=== PATIENT | male | born 1970 | race Caucasian/White ===

== ENCOUNTER 2019-08-13 13:33 | Emergency (ER) | payer BC, SELFPAY ==
--- NOTE | ~2019-08-13 | CT_ITS ---
EXAMINATION: CT facial bones w con DATE: 08/13/2019 16:24 INDICATION: Left-sided facial swelling. TECHNIQUE: Computed tomography (CT) of the facial bones and maxillofacial region was performed with 1 00 mL Omnipaque-350 intravenous contrast. Coronal reconstructions were obtained. Automated exposure c ontrol and iterative reconstruction technique were employed. The dose-length product was 468.51 mGy-c m. COMPARISON: None. FINDINGS: Facial soft tissues tissue swelling with subcutaneous edema which is most prominent in the left infra mandibular region. The left parotid gland appears slightly larger than the left with subtly increased stranding within the left parotid best appreciated on the coronal images equivocal for mild parotidi tis. No abscess. Bones are unremarkable with no fracture or erosions. Paranasal sinuses are clear. Or bits are normal. Asymmetric mild relative enlargement of a few likely reactive left-sided level 2 jug ular chain lymph nodes relative to the right sided lymph nodes which remain within normal limits. Par anasal sinuses, mastoid air cells and middle ear cavities are clear. IMPRESSION: 1. Soft tissue swelling and subcutaneous edema most prominent along the left inframandibular region w hich could be due to nonspecific synovitis or potentially reactive related to possible left parotidit is. 2. Likely reactive mild high left jugular chain lymphadenopathy. Reviewed, dictated and finalized at location A. IMPRESSION: 1. Soft tissue swelling and subcutaneous edema most prominent along the left in framandibular region which could be due to nonspecific synovitis or potentially reactive related to possible left parotiditis. 2. Likely reactive mild high left jugular chain lymphadenopathy.
[2019-08-13 13:36] VITALS: BP 149/87; PULSE 81; RESP 20; TEMP 36.2; O2SAT 100
[2019-08-13 14:17] LABS: Basophils Absolute Auto 0.1 K/mm3 (0.0-0.1); Basophils Percent Auto 1.1 % (0.2-1.2); Eosinophils Absolute Auto 0.2 K/mm3 (0-0.3); Eosinophils Percent Auto 2.6 % (0-4.4); Hematocrit 45.9 % (42.0-52.0); Hemoglobin 15.7 g/dL (14.0-18.0); Immature Granulocyte Absolute 0.01 K/mm3 (0.00-0.031); Immature Granulocyte Percent A 0.2 % (0-0.5); Lymphocytes Absolute Auto 1.25 K/mm3 (0.9-3.2); Mean Corpuscular HGB Conc 34.2 g/dl (32-36); Mean Corpuscular Hemoglobin 30.6 pg (26-34); Mean Corpuscular Volume 89.5 fl (80-100); Mean Platelet Volume 9.4 fl (7.4-10.4); Monocytes Absolute Auto 0.5 K/mm3 (0.1-0.6); Monocytes Percent Auto 8.3 % (2.6-8.5); Neutrophils Absolute Auto 4.2 K/mm3 (1.3-6.7); Neutrophils Percent Auto 67.8 % (45.5-73.1); Platelet Count Result 144 k/mm3 (150-375); Red Blood Count 5.13 M/mm3 (4.6-6.20); Red Cell Distribution Width 12.8 % (11.5-14.5); White Blood Count 6.2 K/mm3 (4.5-10.0)
[2019-08-13 14:32] LABS: Blood Urea Nitrogen 15 mg/dL (9-20); CRP 1.1 mg/dL (<1.0); Calcium 9.3 mg/dL (8.4-10.2); Carbon Dioxide 24 mmol/L (22-30); Chloride 102 mmol/L (98-107); Estimated CRCL calculation 146 ml/min; Estimated Glomerular Filt Rate > 60; Glucose 293 mg/dL (75-110); Potassium 4.5 mmol/L (3.4-5.0); Sodium 136 mmol/L (137-145)
[2019-08-13 14:45] LABS: Erythrocyte Sedimentation Rate 19 mm/hr (0-20)
--- NOTE | 2019-08-13 15:38 | ED.GENADULT ---
HPI - General Adult General Chief complaint: Unspecified Stated complaint: swelling to left face Time Seen by Provider: 08/13/19 15:23 Source: patient Mode of arrival: ambulatory Limitations: no limitations History of Present Illness HPI narrative: This is a 48-year-old male that presents emergency department for left-sided facial swelling that started this morning. No other associated symptoms. Denies fever, dentalgia, sore throat, dysphagia or dyspnea. Related Data Home Medications Medication Instructions Recorded Confirmed amlodipine 10 mg tablet 10 mg PO DAILY 01/23/19 aspirin 81 mg tablet,delayed 81 mg PO DAILY 01/23/19 release esomeprazole magnesium 40 mg 40 mg PO DAILY 01/23/19 capsule,delayed release fexofenadine 180 mg tablet 180 mg PO DAILY 01/23/19 Allergies Allergy/AdvReac Type Severity Reaction Status Date / Time cefuroxime Allergy Mild Unknown Verified 08/13/19 13:38 Penicillins Allergy Unknown Unknown Verified 08/13/19 13:38 Review of Systems Review of Systems: Narrative: CONSTITUTIONAL: Denies fever ENT: Denies sore throat RESPIRATORY: Denies dyspnea. All systems reviewed & are unremarkable except as noted in HPI and below PMFSH Past Medical History Medical History (Updated 08/13/19 @ 17:29 by Monserrat Fuchs PA-C) Anxiety Asthma Diverticulosis Dyslipidemia GERD (gastroesophageal reflux disease) HTN (hypertension) Iron deficiency anemia Type 2 diabetes mellitus without complications Family History Family History (Updated 09/20/15 @ 23:21 by DOCTOR UNKNOWN) Mother Patient's mother is in good health Sibling Patient's brother is in good health Social History Social History (Updated 01/23/19 @ 09:01 by Monique Prado [facility]) Smoking status: Former smoker Smoking end date: 02/22/93 Alcohol intake: current Drinks per week: 15 Substance use: never Gender identity (if verbalized by the patient): Male Exam Narrative: Exam Narrative: GENERAL: Well-appearing, obese, and in no acute distress. HEAD: Normocephalic, atraumatic. EYES: EOMI. ENT: Nares clear, no rhinorrhea or epistaxis. Mucous membranes moist. Oropharynx without tonsillar hypertrophy exudate or other lesions. Bilateral TMs pearly motley non-bulging NECK: Supple. Left sided facial swelling of the parotid gland. No erythema or warmth CHEST: Clear to auscultation. No respiratory distress. No wheezes rales or rhonchi HEART: Regular rate and rhythm. No murmur heard. Normal peripheral pulses. EXTREMITIES: Normal range of motion. No edema. SKIN: Warm, dry, no rash. NEURO: No focal deficits. Alert and oriented x3. PSYCH: Normal mood and affect Course Vital Signs Vital signs: Vital Signs Temperature 97.2 F L 08/13/19 13:36 Pulse Rate 81 08/13/19 13:36 Respiratory Rate 20 08/13/19 13:36 Blood Pressure 149/87 H 08/13/19 13:36 Pulse Oximetry 100 08/13/19 13:36 Temperature 97.2 F L 08/13/19 13:36 Pulse Rate 78 08/13/19 15:42 Respiratory Rate 16 08/13/19 15:42 Blood Pressure 128/83 08/13/19 15:42 Pulse Oximetry 98 08/13/19 15:42 Medical Decision Making MDM Narrative Medical decision making narrative: Patient presents the emergency department for left-sided facial swelling that he noticed this morning. Patient is afebrile and nontoxic-appearing. CBC is without leukocytosis. Metabolic panel with elevation of blood glucose, otherwise no acute findings. Inflammatory markers are not elevated. CT scan of the facial bones shows soft tissue swelling and subcutaneous edema most prominent along the left infra mandibular region, potentially related to parotitis. Patient will be started on oral antibiotics for possible bacterial parotitis. Patient is to follow-up with primary care doctor. He was given warnings to return to the ER Vital Signs Vital Signs: Vital Signs Temperature 97.2 F L 08/13/19 13:36 Pulse Rate 81 08/13/19 13:36 Respiratory Rate 20 08/13/19 13:36 B
[2019-08-13 15:42] VITALS: BP 128/83; PULSE 78; RESP 16; O2SAT 98
== END 2019-08-13 17:50 | disposition home or self-care (01) ==
PROVIDERS: Physician Assistant; Emergency Provider Emergency Medicine; PCP Family Medicine
DX: K11.20 Sialoadenitis, unspecified (principal); F41.9 Anxiety disorder, unspecified; J45.909 Unspecified asthma, uncomplicated; E78.5 Hyperlipidemia, unspecified; K21.9 Gastro-esophageal reflux disease without esophagitis; I10 Essential (primary) hypertension; E11.9 Type 2 diabetes mellitus without complications; Z79.82 Long term (current) use of aspirin; Z87.891 Personal history of nicotine dependence; Z86.2 Personal history of diseases of the blood and blood-forming organs and certain disorders involving the immune mechanism
CPT/HCPCS: 36415; 70487; 80048; 85025; 85652; 86140; 99284; Q9967

== ENCOUNTER 2020-02-18 21:31 | Emergency (ER) | payer BC, SELFPAY ==
[2020-02-18] VITALS (11 sets, daily range): BP systolic 167–197; BP diastolic 96–108; PULSE 82–89; RESP 13–20; TEMP 35.7; O2SAT 97–100
--- NOTE | ~2020-02-18 | CT_ITS ---
EXAMINATION: CT abdomen pelvis w con DATE: 02/18/2020 23:33 INDICATION: Epigastric abdominal pain, elevated liver enzymes TECHNIQUE: Computed tomography (CT) of the abdomen and pelvis was performed with 100 cc Omnipaque 350 intravenous contrast. Automated exposure control and iterative reconstruction technique were employe d. Exam dose: 1273.72 mGy-cm total exam DLP. COMPARISON: 11/21/2013 CT abdomen pelvis FINDINGS: The lung bases are clear of infiltrate or consolidation. Normal heart size. No pericardial or pleural effusion. There is diffuse hepatic steatosis. No hepatic space-occupying mass lesion or intrahepatic or extra h epatic bile duct or pancreatic duct dilatation. No hepatic or pancreatic space-occupying mass lesion. The gallbladder is present. No gallbladder wall thickening or pericholecystic fluid or stranding is evident. Splenic size is at upper limits of normal, vertical dimension approximately 13.6 cm. Normal morphology of the adrenal glands. 8 mm upper pole left renal cyst. The kidneys are otherwise unremarkable. No ureteral calculus or hydr oureteronephrosis. The urinary bladder is relatively evacuated, unremarkable. There is atherosclerotic calcification of the abdominal aorta. No aneurysm. No intraperitoneal or ret roperitoneal or pelvic mass lesion or adenopathy or ascites. No CT evidence of appendicitis. There is diverticulosis of right and left colon; no CT evidence of di verticulitis. No bowel obstruction, bowel wall thickening, pneumatosis or intraperitoneal free air. Very small fat-containing umbilical hernia. Diffuse idiopathic skeletal hyperostosis of the lower thoracic and upper lumbar spine. Moderate degen erative disease of the lumbar spine. Prominent degenerative change at the lumbar apophyseal joints. No suspicious osteolytic or osteoblastic lesions are noted. IMPRESSION: Hepatic steatosis and borderline splenomegaly Diverticulosis of left and right colon; no CT evidence of diverticulitis Reviewed, dictated and finalized at [facility]. Reviewed, dictated and finalized at location A. K RENTAL CLERK
--- NOTE | ~2020-02-18 | XR_ITS ---
EXAMINATION: XR chest 2V DATE: 02/18/2020 22:08 INDICATION: Constant nonbridging chest pain/pressure TECHNIQUE: PA and lateral views of the chest were obtained. COMPARISON: Chest CT dated 04/22/2017 FINDINGS: The lungs are clear with no focal airspace opacities, pulmonary edema, pleural effusion or pneumothor ax. The cardiomediastinal silhouette is normal. There are bridging osteophytes at multiple levels in the spine, consistent with diffuse idiopathic skeletal hyperostosis (DISH). Chronic anterior wedging at L1. IMPRESSION: 1. No acute cardiopulmonary disease. Reviewed, dictated and finalized at location A. L BRAIDER
--- NOTE | 2020-02-18 21:44 | ECG_ITS ---
Measurements Intervals [place] Rate: 84 P: 55 NH: 147 QRS: -11 QRSD: 106 T: 48 QT: 390 QTc: 462 Interpretive Statements SINUS RHYTHM BASELINE ARTIFACT- I, II, III, AVR, AVL NORMAL ECG Electronically Signed On 02-19-2020 7:16:23 BABY FORMULA WORKER by Mahesh Slade D.O.
[2020-02-18] MEDS: ASPIRIN 81 MG CHEWABLE TABLET 324 MG PO (21:56)
--- NOTE | 2020-02-18 21:57 | PC.NURSE ---
Patient being taken to xray.
[2020-02-18] MEDS: BELLADONNA ALK/PHENOB ELIX 10 ML, MAG HYDROX/ALUMINUM HYD/SIMETH 30 ML, LIDOCAINE HCL 2... PO (22:07)
[2020-02-18 22:20] LABS: Basophils Absolute Auto 0.1 K/mm3 (0.0-0.1); Eosinophils Absolute Auto 0.1 K/mm3 (0-0.3); Eosinophils Percent Auto 2.7 % (0-4.4); Hematocrit 45.2 % (42.0-52.0); Hemoglobin 15.6 g/dL (14.0-18.0); Immature Granulocyte Absolute 0.01 K/mm3 (0.00-0.031); Immature Granulocyte Percent A 0.2 % (0-0.5); Lymphocytes Absolute Auto 1.58 K/mm3 (0.9-3.2); Lymphocytes Percent Auto 30.9 % (18.3-44.2); Mean Corpuscular HGB Conc 34.5 g/dl (32-36); Mean Corpuscular Hemoglobin 31.5 pg (26-34); Mean Corpuscular Volume 91.3 fl (80-100); Mean Platelet Volume 9.8 fl (7.4-10.4); Monocytes Absolute Auto 0.5 K/mm3 (0.1-0.6); Monocytes Percent Auto 9.8 % (2.6-8.5); Neutrophils Absolute Auto 2.8 K/mm3 (1.3-6.7); Neutrophils Percent Auto 55.4 % (45.5-73.1); Platelet Count Result 145 k/mm3 (150-375); Red Blood Count 4.95 M/mm3 (4.6-6.20); Red Cell Distribution Width 12.3 % (11.5-14.5); White Blood Count 5.1 K/mm3 (4.5-10.0)
[2020-02-18 22:29] LABS: Prothrombin Time 13.6 Seconds (11.1-14.7)
[2020-02-18 22:30] LABS: Partial Thromboplastin Time 28.4 SECONDS (22.3-36.8)
--- NOTE | 2020-02-18 22:41 | ED.GENADULT ---
HPI - General Adult General Chief complaint: Chest Pain Stated complaint: chest pain Time Seen by Provider: 02/18/20 21:46 History of Present Illness HPI narrative: Patient is a 49-year-old gentleman who presents emerge department with chief complaint of epigastric discomfort and chest discomfort. Patient reports this evening he started having discomfort in the epigastric region rate reports that it radiates up into his chest states that it feels as though there is a pressure-like sensation. The patient denies fever denies cough denies diaphoresis denies radiation to the arm or into the neck. The patient reports that the primary focus of the discomfort is in the epigastric region. He does report that he drinks alcohol with approximately 2 drinks per day. The patient also reports he has history of hypertension and has not taken his evening dose of his blood pressure medicine. Patient reports that he has had a stress test several years ago. Related Data Home Medications Medication Instructions Recorded Confirmed aspirin 81 mg tablet,delayed 81 mg PO DAILY 01/23/19 12/07/19 release esomeprazole magnesium 40 mg 40 mg PO DAILY 01/23/19 12/07/19 capsule,delayed release fexofenadine 180 mg tablet 180 mg PO DAILY 01/23/19 12/07/19 Allergies Allergy/AdvReac Type Severity Reaction Status Date / Time cefuroxime Allergy Mild Unknown Verified 02/18/20 21:42 Penicillins Allergy Unknown Unknown Verified 02/18/20 21:42 Review of Systems Review of Systems: Narrative: A 10 system review of systems was completed on the patient and is negative except for what is stated in the HPI. Nursing and ancillary documentation was reviewed. [facility] Past Medical History Medical History Anxiety Asthma Diverticulosis Dyslipidemia GERD (gastroesophageal reflux disease) HTN (hypertension) Iron deficiency anemia Type 2 diabetes mellitus without complications Family History Family History Mother Patient's mother is in good health Sibling Patient's brother is in good health Social History Social History Smoking status: Former smoker Smoking end date: 02/22/93 Alcohol intake: current Drinks per week: 15 Substance use: never Gender identity (if verbalized by the patient): Male Exam Narrative: Exam Narrative: GENERAL: Well-appearing, well-nourished, and in no acute distress. HEAD: Normocephalic, atraumatic. EYES: PERRLA and EOMI. ENT: Nares clear, no rhinorrhea or epistaxis. Mucous membranes moist. NECK: Supple. CHEST: Clear to auscultation. No respiratory distress. HEART: Regular rate and rhythm. No murmur heard. Normal peripheral pulses. ABDOMEN: Soft, nontender, nondistended, normal active bowel sounds. EXTREMITIES: Normal range of motion. No edema. SKIN: Warm, dry, no rash. NEURO: No focal deficits. Alert and oriented x3. PSYCH: Normal mood and affect. Course Course Emergency Course: EKG shows sinus rhythm rate of [address] elevation or ST depression Patient had a slight elevation in his liver transaminases a CT scan of the abdomen pelvis was obtained which showed no evidence of acute intra-abdominal pathology. Initial troponin was negative and repeat troponin was negative. Vital Signs Vital signs: Vital Signs Temperature 35.7 C L 02/18/20 21:37 Pulse Rate 89 02/18/20 21:37 Respiratory Rate 18 02/18/20 21:37 Blood Pressure 197/108 H 02/18/20 21:37 Pulse Oximetry 100 02/18/20 21:37 Temperature 35.7 C L 02/18/20 21:37 Pulse Rate 82 02/19/20 01:15 Respiratory Rate 13 02/19/20 01:15 Blood Pressure 155/90 H 02/19/20 00:01 Pulse Oximetry 97 02/19/20 01:15 Medical Decision Making Vital Signs Vital Signs: Vital Signs Temperature 35.7 C L 02/18/20 21:37 Pulse Rate 89 02/18/20 21:37 Re
[2020-02-18 22:43] LABS: Troponin I < 0.012 ng/mL (0.000-0.034)
[2020-02-18 22:56] LABS: Alanine Aminotransferase 68 U/L (4-50); Albumin Level 4.4 g/dL (3.5-5.1); Alkaline Phosphatase 148 U/L (38-126); Aspartate Amino Transferase 65 U/L (17-59); Bilirubin,Total 0.5 mg/dL (0.2-1.3); Lipase 146 U/L (23-300)
[2020-02-18 23:10] LABS: Anion Gap 14 mmol/L (8-16); Blood Urea Nitrogen 14 mg/dL (9-20); Calcium 9.4 mg/dL (8.4-10.2); Carbon Dioxide 25 mmol/L (22-30); Chloride 94 mmol/L (98-107); Estimated CRCL calculation 125 ml/min; Estimated Glomerular Filt Rate > 60; Glucose 379 mg/dL (75-110); Potassium 3.9 mmol/L (3.4-5.0); Sodium 133 mmol/L (137-145)
[2020-02-19] VITALS (10 sets, daily range): BP systolic 147–155; BP diastolic 90–101; PULSE 80–86; RESP 13–19; O2SAT 96–100
[2020-02-19 01:40] LABS: Troponin I < 0.012 ng/mL (0.000-0.034)
== END 2020-02-19 02:25 | disposition home or self-care (01) ==
PROVIDERS: Emergency Provider Emergency Medicine; PCP Family Medicine
DX: R10.13 Epigastric pain (principal); R07.89 Other chest pain; E11.65 Type 2 diabetes mellitus with hyperglycemia; Z79.82 Long term (current) use of aspirin; J45.909 Unspecified asthma, uncomplicated; E78.5 Hyperlipidemia, unspecified; K21.9 Gastro-esophageal reflux disease without esophagitis; I10 Essential (primary) hypertension; Z86.2 Personal history of diseases of the blood and blood-forming organs and certain disorders involving the immune mechanism; Z87.891 Personal history of nicotine dependence
CPT/HCPCS: 36415; 71046; 74177; 80048; 80076; 83690; 84484; 85025; 85610; 85730; 93005; 99284; A9270; Q9967

== ENCOUNTER 2020-04-05 14:09 | Outpatient (CLI) | payer BC, SELFPAY ==
--- NOTE | ~2020-04-05 | XR_ITS ---
EXAMINATION: XR chest 2V DATE: 04/05/2020 14:40 INDICATION: Shortness of breath TECHNIQUE: PA and lateral views of the chest are obtained. COMPARISON: 02/18/2020 FINDINGS: The lungs are free of acute opacities. There is no pleural effusion or pneumothorax. The ca rdiomediastinal silhouette is normal. There are bridging osteophytes at multiple levels in the spine, consistent with diffuse idiopathic skeletal hyperostosis (DISH). IMPRESSION: 1. No acute cardiopulmonary abnormality. Reviewed, dictated and finalized at location A. CTION MEDICINE PHYSICIAN
[2020-04-05 14:47] LABS: Basophils Absolute Auto 0.1 K/mm3 (0.0-0.1); Basophils Percent Auto 0.9 % (0.2-1.2); Eosinophils Absolute Auto 0.2 K/mm3 (0-0.3); Hematocrit 44.2 % (42.0-52.0); Hemoglobin 15.4 g/dL (14.0-18.0); Immature Granulocyte Absolute 0.02 K/mm3 (0.00-0.031); Immature Granulocyte Percent A 0.4 % (0-0.5); Immature Platelet Fraction Pct 3.6 % (0.9-11.2); Lymphocytes Absolute Auto 1.31 K/mm3 (0.9-3.2); Lymphocytes Percent Auto 23.4 % (18.3-44.2); Mean Corpuscular HGB Conc 34.8 g/dl (32-36); Mean Corpuscular Volume 88.9 fl (80-100); Monocytes Absolute Auto 0.7 K/mm3 (0.1-0.6); Monocytes Percent Auto 12.5 % (2.6-8.5); Neutrophils Absolute Auto 3.3 K/mm3 (1.3-6.7); Neutrophils Percent Auto 59.8 % (45.5-73.1); Platelet Count Result 155 k/mm3 (150-375); Red Blood Count 4.97 M/mm3 (4.6-6.20); Red Cell Distribution Width 11.9 % (11.5-14.5); White Blood Count 5.6 K/mm3 (4.5-10.0)
[2020-04-05 14:58] LABS: Alanine Aminotransferase 65 U/L (4-50); Albumin Level 4.1 g/dL (3.5-5.1); Alkaline Phosphatase 98 U/L (38-126); Anion Gap 6 mmol/L (8-16); Aspartate Amino Transferase 69 U/L (17-59); Bilirubin,Total 0.5 mg/dL (0.2-1.3); Blood Urea Nitrogen 14 mg/dL (9-20); Calcium 9.3 mg/dL (8.4-10.2); Carbon Dioxide 33 mmol/L (22-30); Chloride 98 mmol/L (98-107); Estimated Glomerular Filt Rate > 60; Glucose 332 mg/dL (75-110); Potassium 4.5 mmol/L (3.4-5.0); Sodium 137 mmol/L (137-145); Uric Acid 4.3 mg/dL (3.5-8.5)
[2020-04-05 15:06] LABS: NT Pro B Type Natriuretic Pept 130 PG/ML (5-100)
[2020-04-05 15:49] LABS: Iron 101 ug/dL (49-181)
[2020-04-05 15:59] LABS: Percent Iron Saturation 27 % (20-50)
[2020-04-05 16:05] LABS: Folic Acid > 20.0 ng/mL (2.76->20)
[2020-04-05 16:20] LABS: Hepatitis B Surface Antigen Negative (Negative)
[2020-04-05 16:26] LABS: HAV RESULT Negative (Negative); Hepatitis B Core IgM Result Negative (Negative)
[2020-04-05 16:38] LABS: Hepatitis C Virus Antibody Negative (Negative)
== END 2020-04-05 14:10 | disposition home or self-care (01) ==
LOC: ANHLAB 14:11
PROVIDERS: PCP Family Medicine; Visit Provider Physician Assistant
DX: R06.02 Shortness of breath (principal); I50.9 Heart failure, unspecified; M10.9 Gout, unspecified; K21.9 Gastro-esophageal reflux disease without esophagitis; E11.9 Type 2 diabetes mellitus without complications; I10 Essential (primary) hypertension; J45.909 Unspecified asthma, uncomplicated; F41.9 Anxiety disorder, unspecified; E78.5 Hyperlipidemia, unspecified; D50.9 Iron deficiency anemia, unspecified; M79.2 Neuralgia and neuritis, unspecified
CPT/HCPCS: 36415; 71046; 80053; 80074; 82607; 82728; 82746; 83036; 83540; 83550; 83880; 84443; 84550; 85025; 85055; 86038

== ENCOUNTER 2020-05-02 13:30 | Outpatient (CLI) | payer BC, SELFPAY | END 2020-05-02 13:31 | disposition home or self-care (01) | LOC: ANHCOVIDVC 13:30 | PROVIDERS: PCP Family Medicine | DX: Z23 Encounter for immunization (principal) | CPT/HCPCS: 0001A; 91300 ==

== ENCOUNTER 2020-05-23 13:25 | Outpatient (CLI) | payer BC, SELFPAY | END 2020-05-23 13:26 | disposition home or self-care (01) | LOC: ANHCOVIDVC 13:25 | PROVIDERS: PCP Family Medicine | DX: Z23 Encounter for immunization (principal) | CPT/HCPCS: 0002A; 91300 ==

== ENCOUNTER 2021-02-21 13:41 | Outpatient (CLI) | payer BC, SELFPAY ==
--- NOTE | ~2021-02-21 | XR_ITS ---
EXAMINATION: XR shoulder LT min 2V EXAM DATE: 02/21/2021 14:13 INDICATION: Left shoulder pain. TECHNIQUE: The following left shoulder projections obtained: frontal projection with internal rotatio n, frontal projection with external rotation, Grashey, and axillary (4+ views). Correlation is made t o right shoulder same date. FINDINGS: There is mild left glenohumeral joint, moderate to severe acromioclavicular joint primary o steoarthritis. Tiny calcification along the inferior glenoid rim. There are no acute fractures or di slocations identified. There is no subcutaneous gas. The soft tissue is unremarkable. There are n o radiopaque foreign bodies. IMPRESSION: Left shoulder moderate to severe acromioclavicular, mild glenohumeral osteoarthritis. Reviewed, dictated and finalized at location A. L INSTALLER IMPRESSION: Left shoulder moderate to severe acromioclavicular, mild glenohumer al osteoarthritis.
--- NOTE | ~2021-02-21 | XR_ITS ---
EXAMINATION: XR shoulder RT min 2V EXAM DATE: 02/21/2021 14:13 INDICATION: Right shoulder pain. TECHNIQUE: The following right shoulder projections obtained: frontal projection with internal rotati on, frontal projection with external rotation, Grashey, and axillary (4+ views). Comparison is made t o prior examination from 11/19/2017. FINDINGS: No evidence of right shoulder rotator cuff calcific tendinosis. There is mild glenohumer al joint, moderate acromioclavicular joint primary osteoarthritis. Difficult appreciate any signific ant interval change compared to 2018. There are no acute fractures or dislocations identified. There is no subcutaneous gas. The soft tissue is unremarkable. There are no radiopaque foreign bodies. IMPRESSION: Moderate right acromioclavicular, mild glenohumeral osteoarthritis. Reviewed, dictated and finalized at location A. ACE FILLER
--- NOTE | ~2021-02-21 | XR_ITS ---
EXAMINATION: XR lumbar spine 2-3V EXAM DATE: 02/21/2021 14:13 INDICATION: Chronic low back pain. TECHNIQUE: Lumber spine frontal, lateral, lateral L5-S1 projections for interpretation. There is no prior study for comparison. FINDINGS: There are bridging thoracolumbar endplate osteophytes and also at L3-4. Mild to moderate d isc disease T11-L2, mild at the mid lumbar levels and mild to moderate at L5-S1. There is moderate lane mbar facet arthropathy. Sacrum, sacroiliac joints, sacral arcuate lines are intact. Paraspinal soft t issue is unremarkable. The vertebral bodies are aligned in the AP dimension. IMPRESSION: 1. Mild to moderate lumbar disc disease. 2. Moderate facet arthropathy. Reviewed, dictated and finalized at location A. ICIDE APPLICATOR
--- NOTE | ~2021-02-21 | XR_ITS ---
EXAMINATION: XR thoracic spine 2V EXAM DATE: 02/21/2021 14:13 INDICATION: Chronic upper back pain. TECHNIQUE: Frontal and lateral projections of the thoracic spine as well as lateral swimmers projecti on of the upper thoracic spine for interpretation. There is no prior study for comparison. FINDINGS: Patient has diffuse idiopathic skeletal hyperostosis, flowing osteophytes along the entire thoracic spine. Mild diffuse thoracic disc disease. There are no acute fractures identified. The nereida tebral body heights are maintained. Paraspinal soft tissue is unremarkable. IMPRESSION: 1. Thoracic diffuse idiopathic skeletal hyperostosis. 2. Mild disc disease. Reviewed, dictated and finalized at location A. GUN OPERATOR
--- NOTE | ~2021-02-21 | XR_ITS ---
EXAMINATION: XR knee LT 3V EXAM DATE: 02/21/2021 14:13 INDICATION: Left knee pain. TECHNIQUE: Three projections of the left knee. There is no prior study for comparison. FINDINGS: No evidence osteochondral defect or joint body in the left knee joint. There is mild langley llofemoral compartment primary osteoarthritis. Mild patellar lateral subluxation. There is suprapate llar and infrapatellar enthesopathy. No joint effusion. There are no acute fractures identified. No r adiopaque foreign bodies identified. IMPRESSION: Mild left patellar degenerative changes. Reviewed, dictated and finalized at location A. L OPPORTUNITY REPRESENTATIVE
== END 2021-02-21 13:42 | disposition home or self-care (01) ==
LOC: ANHIMG 13:45
PROVIDERS: PCP Family Medicine; Visit Provider Physician Assistant
DX: M25.519 Pain in unspecified shoulder (principal); M25.569 Pain in unspecified knee; M54.50 Low back pain, unspecified; M54.6 Pain in thoracic spine; M19.012 Primary osteoarthritis, left shoulder; M19.011 Primary osteoarthritis, right shoulder; M48.14 Ankylosing hyperostosis [Forestier], thoracic region; M51.9 Unspecified thoracic, thoracolumbar and lumbosacral intervertebral disc disorder; M12.88 Other specific arthropathies, not elsewhere classified, other specified site
CPT/HCPCS: 72070; 72100; 73030; 73562

== ENCOUNTER 2021-05-02 08:00 | Outpatient (RCR) | payer BC, SELFPAY ==
[2021-02-28 12:35] VITALS: BP_SYST 155
--- NOTE | 2021-02-28 14:09 | PTOPEVAL ---
PHYSICAL THERAPY EVALUATION AND PLAN OF CARE 02-28-21 Thank you for referring Francisco Javier Sherman to [facility].? He is scheduled to be seen for therapy? 2 x/week for 3 weeks. Please review, sign, date and return this plan of care TIFFANY. I agree with and certify that the following plan of care is medically necessary. Referring Physician Date Attending Provider: Krystyna Charles PA-C *PT Outpatient Evaluation Document 02/28/21 12:35 OSEAS (Rec: 02/28/21 13:43 OSEAS [id number]) Past Medical History Source of Past Medical History Recalled from Previous Visit, Confirmed with Patient/Family Neurological History Hx Neurological Disorders No Significant History Cardiovascular History Hx Hypercholesterolemia Yes: meds Hx Hypertension Yes: meds Respiratory History Hx Asthma Yes Gastrointestinal History Hx Diverticulitis Yes Hx Gastroesophageal Reflux Disease Yes Genitourinary History Hx Genitourinary Disorders No Significant History Musculoskeletal History Hx Back Pain Yes: chronic back pain- radicular into B legs;thoracic buldge disc Hx Gout Yes: R big toe-? due to med/ no longer have issues Hx Orthopedic Surgery Yes: R quad tendon repair/ pulled off bone Hx Other Musculoskeletal Disorders Yes: R & L shoulder, neck pain - radicular into R and L arms; Hematological History Hx Hematological Disorders No Significant History Endocrine History Hx Diabetes Yes: meds HEENT History Hx HEENT Disorders No Significant History Evaluation Information Problem Diagnosis pain R shoulder,pain L shoulder,pain L knee,pain thoracic spine,LBP Onset November 2020 Subjective Information chronic issues with both Query Text:As Reported By Patient/ shoulder pain; Family in November working on home and fell through ceiling and as falling down, caught self with UE on roof joist, then hung by arms, then dropped himself down to the floor; shoulder pain has been about the same/ not any better since injury; discussed multiple diagnosis' with pt and need to pick only one to start treatment with: he stated R shoulder is giving him the most pain;
--- NOTE | 2021-03-17 15:30 | PCPTNOTE ---
Patient called & cancelled scheduled appointment this date due to work.
--- NOTE | 2021-03-21 08:52 | PTOPEVAL ---
PHYSICAL THERAPY RE-EVALUATION 03-21-21 Refer to the clinical summary below for his status today, compared to the initial evaluation for his R shoulder. The goals were partially achieved. He continues to have pain in his shoulder and reports he has an ortho referral, but the appointment has not yet been scheduled. PLAN: HOLD PT for his shoulder and he is to continue with his home exercises. At next appointment, will initiate the order for back pain, evaluate his back pain and begin treatment for it. Thank you for referring Francisco Javier Sherman to [facility].? Please review, sign, date and return this reevaluation report TIFFANY. I agree with and certify that the following plan of care is medically necessary. Referring Physician Date Attending Provider: Krystyna Charles PA-C Document 03/21/21 08:00 OSEAS (Rec: 03/21/21 08:52 OSEAS [id number]) Assessment Status Re-evaluation Subjective Information Francisco Javier reports: doing exercises Query Text:As Reported By Patient/ , they help some, but pain Family still there; have referral to ortho dr- appt not set yet; sleeping is little better, can lie on R side for little while; still pain with reaching out to the side; Pain Assessment Timing of Pain Assessment Timing of Pain Assessment Assessment Pain Scale Pain Scale Used Numeric (1 - 10) Self Report Pain Assessment Right Shoulder(s) Reported Pain Level 1 Radicular Pain Location no pain in elbow; pain over upper deltoid Pain Frequency Chronic Other Pain Description dull achey all time; sharp pain and jab when move wrong or lift; Lowest Pain Intensity 1 Greatest Pain Intensity 8 Pain Aggravating Factors Exercise/Activity Other Pain Aggravating Factors lifting out to the side; Pain Score Pain Score 1: Self Report Additional Pain Score Comments when moving arm, can reposition and ease the pain; with sleeping, awaken 1-2x/ night due to pain; can lie on R side about 1 hour before have to move; Quick DASH score with self assessment 48% limitation in activity reports kinesiotape helped a little--but came off quickly; applied leukotape to R shoulder strip over deltoid- issued pt name of tape and education on application;
--- NOTE | 2021-04-01 16:15 | PTOPEVAL ---
PHYSICAL THERAPY EVALUATION 04-01-21 Thank you for referring Francisco Javier Sherman to [facility] for the diagnosis of thoracic pain and low back pain. He is scheduled to be seen for therapy? 2 x/week for 4 weeks. Please review, sign, date and return this plan of care TIFFANY. I agree with and certify that the following plan of care is medically necessary. Referring Physician Date Attending Provider: Krystyna Charles PA-C *PT Outpatient Evaluation Past Medical History Source of Past Medical History Recalled from Previous Visit, Confirmed with Patient/Family Neurological History Hx Neurological Disorders No Significant History Cardiovascular History Hx Hypercholesterolemia Yes: meds Hx Hypertension Yes: meds Respiratory History Hx Asthma Yes Gastrointestinal History Hx Diverticulitis Yes Hx Gastroesophageal Reflux Disease Yes Genitourinary History Hx Genitourinary Disorders No Significant History Musculoskeletal History Hx Back Pain Yes: chronic back pain- radicular into B legs;thoracic buldge disc Hx Gout Yes: R big toe-? due to med/ no longer have issues Hx Orthopedic Surgery Yes: R quad tendon repair/ pulled off bone Hx Other Musculoskeletal Disorders Yes: R & L shoulder, neck pain - radicular into R and L arms; Hematological History Hx Hematological Disorders No Significant History Endocrine History Hx Diabetes Yes: meds HEENT History Hx HEENT Disorders No Significant History Evaluation Information Problem Diagnosis low back pain, thoracic pain Onset Jan 2021 Subjective Information chronic issues with thoracic Query Text:As Reported By Patient/ and lumbar/back pain; have had Family PT in the past for his back- manual therapy/cracking back, deep massage, heat/stim helped and exercises; last time had PT has been few years ago; had MRI 25 yr ago- said thoracic disc protruding--saw neurosurgeon, non surgical at that time; have not had mechanical traction or dry needling treatments; Diagnostic Tests X-Rays For This Problem Yes: per pt- arthritis MRI For This Problem Yes: 25 yr ago Prior Level of Function Activity Level (Last 3 Months) Occupation project hire- [employer] and
--- NOTE | 2021-04-30 14:04 | PCPTNOTE ---
pt called and canceled today's reeval;
--- NOTE | 2021-05-02 08:56 | PTOPEVAL ---
PHYSICAL THERAPY DISCHARGE 05-02-21 Refer to the clinical summary below, for his status today, compared to the back evaluation. The goals were partially achieved. He will be discharged from PT at this time. Thank you for referring Francisco Javier Sherman to [facility].? Please review, sign, date and return this Discharge report TIFFANY. I agree with and certify that the following plan of care is medically necessary. Referring Physician Date Attending Provider: Krystyna Charles PA-C Document 05/02/21 08:00 OSEAS (Rec: 05/02/21 08:56 OSEAS [id number]) Subjective Information Francisco Javier reports: exercises, dry Query Text:As Reported By Patient/ needling and deep massage Family helps the back pain and tightness; muscles are not as tight, but spine and bones still tight; plans to keep up with the exercises; Pain Assessment Timing of Pain Assessment Timing of Pain Assessment Assessment Pain Scale Pain Scale Used Numeric (1 - 10) Self Report Pain Assessment Bilateral Back Reported Pain Level 1 Pain Description Dull,Tightness Pain Frequency Chronic,Continuous Other Pain Description R and L low back, into R and L leg to feet, sharp 1x/day with in bed,sit Lowest Pain Intensity 1 Greatest Pain Intensity 7 Pain Aggravating Factors Exercise/Activity,Sitting Other Pain Aggravating Factors sit tolerance 1-1&1/2 hr, Pain Score Pain Score 1: Self Report Additional Pain Score Comments Oswestry self assessment functional score of 14% limitation had R shoulder injection- decrease pain and can lie on shoulder for sleeping; back does not wake him up from sleeping; discussed inversion table--he has not tried one Interventions Used Interventions Used By Clinicians Education,Exercise Pain Relief Interventions Used By Inactivity/Rest,Medication, Patient Position Change Other Alleviating Interventions stretching back, over the counter meds PRN, deep massage Gross Lower Extremity Range of Motion ant hip /quad length with Comments prone knee flexion B 120' hamstring length with supine SLR B 65' standing trunk- flexion fingers to mid hinton; extension WNL; rotation R/L
== END 2021-05-02 16:28 | disposition home or self-care (01) ==
LOC: ANHPT 08:00
PROVIDERS: PCP Family Medicine; Visit Provider Physician Assistant
DX: M25.511 Pain in right shoulder (principal); M25.512 Pain in left shoulder; M25.562 Pain in left knee; M54.6 Pain in thoracic spine; M54.50 Low back pain, unspecified; G89.29 Other chronic pain
CPT/HCPCS: 20560; 97012; 97035; 97110; 97140; 97161

== ENCOUNTER → 2021-06-16 10:45 | Outpatient (CLI) | payer BC, SELFPAY ==
--- NOTE | ~2021-06-16 | MR_ITS ---
EXAMINATION: MR shoulder RT wo con DATE: 06/16/2021 11:15 INDICATION: Right shoulder pain TECHNIQUE: Magnetic resonance imaging (MRI) of the right shoulder was performed without intravenous c ontrast. Sequences included axial PD-weighted FS FSE, coronal oblique PD-weighted FS FSE, coronal obl ique T2-weighted FS FSE, sagittal PD-weighted FS FSE, and sagittal T1-weighted SE. COMPARISON: None. FINDINGS: Coracoacromial arch: The acromion undersurface is curved in morphology (type II). The coracoacromial ligament is normal. S evere acromioclavicular osteoarthritis. Rotator cuff: Moderate supraspinatus and mild infraspinatus tendinopathy. There is a small articular sided tear ext ending 10 mm AP along the superior facet footplate of the supraspinatus tendon which involves approxi mately one half of the tendon thickness throughout the majority of its length. There is a tiny full-t hickness component measuring 2 mm AP at the posterior margin of the tear. The subscapularis and teres minor tendons are normal. Normal rotator cuff muscle bulk and signal. Biceps tendon, glenoid labrum and glenohumeral cartilage: Long head of the biceps tendon is normal. There is a small tear at the base of the 4:00-5: Position o f the anteroinferior glenoid labrum. Glenohumeral cartilage is normal. Fluid: Physiologic amount of fluid in the glenohumeral joint and biceps tendon sheath. No loose osteochondr al bodies. Small amount of fluid in the subacromial/subdeltoid bursa consistent with mild bursitis. Bones: Normal marrow signal with no edema, fracture or abnormal marrow replacing process. IMPRESSION: 1. Mild supraspinatus and infraspinatus tendinopathy with small primarily articular sided tear of the supraspinatus tendon with tiny full-thickness component. 2. Small tear at the anteroinferior glenoid labrum. 3. Severe acromioclavicular osteoarthritis. 4. Mild subacromial/subdeltoid bursitis. Reviewed, dictated and finalized at location B. IMPRESSION: 1. Mild supraspinatus and infraspinatus tendinopathy with small primarily artic ular sided tear of the supraspinatus tendon with tiny full-thickness component. 2. Small tear at the anteroinferior glenoid labrum. 3. Severe acromioclavicular osteoarthritis. 4. Mild subacromial/subdeltoid bursitis.
== END ==
PROVIDERS: PCP Family Medicine; Visit Provider Orthopaedic Surgery
DX: M19.011 Primary osteoarthritis, right shoulder (principal); M75.51 Bursitis of right shoulder
CPT/HCPCS: 73221

== ENCOUNTER 2024-08-28 16:18 | Outpatient (CLI) | payer BC, SELFPAY ==
--- NOTE | ~2024-08-28 | XR_ITS ---
EXAM: XR shoulder RT min 2V DATE: 08/28/2024 16:47 HISTORY: S49.91XA - Unspecified injury of right shoulder and upper... . COMPARISON: 02/21/2021. FINDINGS: Normal mineralization. No fracture or dislocation. No lytic or blastic lesion. Moderate AC joint and mild glenohumeral joint degenerative change. Calcified right lung granuloma. No erosion or periosteal change. Soft tissues within normal limits. IMPRESSION: Moderate AC joint and mild humeral joint osteoarthritis. No acute osseous finding in the right shoulder. Reviewed, dictated and finalized at location K. IMPRESSION: Moderate AC joint and mild humeral joint osteoarthritis. No acute o sseous finding in the right shoulder.
== END 2024-08-28 16:19 | disposition home or self-care (01) ==
LOC: MICIMG 16:20
PROVIDERS: PCP Family Medicine; Visit Provider Physician Assistant Medical
DX: M19.011 Primary osteoarthritis, right shoulder (principal); S49.91XA Unspecified injury of right shoulder and upper arm, initial encounter; X58.XXXA Exposure to other specified factors, initial encounter
CPT/HCPCS: 73030

== ENCOUNTER 2024-12-20 09:55 | Outpatient (CLI) | payer BC, SELFPAY ==
--- NOTE | ~2024-12-20 | MR_ITS ---
EXAMINATION: MR shoulder RT wo con DATE: 12/20/2024 10:27 INDICATION: Complete rotator cuff tear TECHNIQUE: Magnetic resonance imaging (MRI) of the right shoulder was performed without intravenous contrast. Sequences included axial PD-weighted FS FSE, coronal oblique PD-weighted FS FSE, coronal oblique T2-weighted FS FSE, sagittal PD-weighted FS FSE, and sagittal T1-weighted SE. COMPARISON: Radiographs dated 08/28/2024 and MRI dated 06/16/2021 FINDINGS: Coracoacromial arch: The acromion undersurface is curved in morphology (type II). The coracoacromial ligament is normal. Severe acromioclavicular osteoarthritis predominantly cephalad directed osteophytes and small amount of heterotopic ossicles along the cephalad joint capsule. Rotator cuff: Mild supraspinatus and infraspinatus tendinopathy. There is attenuation of the distal 2 cm of the supraspinatus and anterior infraspinatus tendon secondary to partial thickness articular sided tear which extends 2 cm AP along the superior facet and anterior middle facet footplates of the tendon. This has progressed since the prior study location was restricted to the 1 cm of the tendon anterior to a small full-thickness component to the tear which currently measures 3 mm AP along the posterior superior facet footplate of the supraspinatus tendon. The teres minor tendon is normal. Mild subscapularis tendinopathy without tear. Normal rotator cuff muscle bulk and signal. Biceps tendon, glenoid labrum and glenohumeral cartilage: Mild tendinopathy of the long head biceps tendon with full-thickness tear at the junction of the intra-articular and extra-articular portions of the long head biceps tendon with distal tear margin at the level of the cephalad aspect of the intertubercular groove and with the proximal portion of the tendon reflected anteriorly and medially from the glenoid anchor into the deep subscapular recess. No significant change in a small tear at the base of the 4:00 to 5:00 position of the anteroinferior glenoid labrum. Glenohumeral cartilage remains normal. Fluid: Physiologic amount of fluid in the glenohumeral joint and biceps tendon sheath. No loose osteochondral bodies. Small amount of fluid in the subacromial/subdeltoid bursa consistent with mild bursitis. Bones: Normal marrow signal with no fracture or pathologic marrow replacing process. IMPRESSION: 1. New full-thickness tear at the junction of the internal extra articular portions of the long head biceps tendon. 2. Mild supraspinatus and infraspinatus tendinopathy with more posterior progression of a previously 1 cm AP, currently 2 cm predominantly articular sided tear along the distal footplate of the supraspinatus and infraspinatus tendon involving approximately one half of the tendon thickness with unchanged small full-thickness component at the posterior supraspinatus tendon. 3. Unchanged small tear at the anteroinferior glenoid labrum. 4. Severe acromioclavicular osteoarthritis with mild underlying subacromial/subdeltoid bursitis. Reviewed, dictated and finalized at location A. IMPRESSION: 1. New full-thickness tear at the junction of the internal extra articular port ions of the long head biceps tendon. 2. Mild supraspinatus and infraspinatus tendinopathy with more posterior progre ssion of a previously 1 cm AP, currently 2 cm predominantly articular sided tea r along the distal footplate of the supraspinatus and infraspinatus tendon invo lving approximately one half of the tendon thickness with unchanged small full- thickness component at the posterior supraspinatus tendon. 3. Unchanged small tear at the anteroinferior glenoid labrum. 4. Severe acromioclavicular osteoarthritis with mild underlying subacromial/sub deltoid bursitis.
== END 2024-12-20 09:56 | disposition home or self-care (01) ==
LOC: MICIMG 09:56
PROVIDERS: PCP Family Medicine; Visit Provider Orthopaedic Surgery
DX: M75.121 Complete rotator cuff tear or rupture of right shoulder, not specified as traumatic (principal)
CPT/HCPCS: 73221

== ENCOUNTER 2025-02-06 01:16 | Day surgery (SDC) | payer BC, SELFPAY ==
[2025-02-02 13:47] VITALS: BMI 30.4
--- NOTE | 2025-02-02 14:01 | SUR.PREOP ---
[facility] has started construction of its new state of the art ER which will open Spring 2026. With this, we anticipate parking may be a challenge for some our surgical patients and families. Parking spaces are limited but are available for all Surgical, obstetrics, and ER patients sharing this lot. If you arrive and find you are having a hard time finding a parking space, please note that we understand the challenges, please drive around the hospital and park near Hospital Entrance 1. When you enter this entrance, you can ask a volunteer to direct or take you back to the surgical waiting area to check in. We appreciate everyone?s understanding of these expected challenges while we build for your future. Report to the Outpatient Waiting Room, entrance under the green pavilion located off [address], at time ____1030___ on date __02/06 . Planned Procedure Time: ____1230____.? Time changes happen often and if your time is changed the preop area will call you the afternoon before. - You and your visitor will be asked to self-screen and do not enter if you have any COVID symptoms. Please call surgeon if you need to reschedule. - A mask is optional within the hospital at this time. Patients may have clear liquids (water, carbonated beverages, clear teas, apple juice) until 3 hours prior to surgery with a maximum of 20 ounces. stop by 0930 - No food from midnight until time of surgery and no smoking, or chewing tobacco (or any form of nicotine). No chewing gum, candy or mints. Take only the following medications with a SIP of water on the morning of surgery: alprozolam and metoprolol DO NOT STOP ANY OF YOUR OTHER PRESCRIPTION MEDICATIONS PRIOR TO SURGERY EXCEPT THE FOLLOWING Hold all vitamins and supplements for 3 days per anesthesiologist. Medications to discontinue per physician nsaids 7 days and tirzepatide 01/27 Date to take last dose Please no make-up, nail indonesian, hairspray, perfume, deodorant, or body powder the day of surgery.? No jewelry (including any body piercings) or valuables the day of surgery, leave them at home.? Please take a shower or bath the night before, or the morning of, surgery with an antibacterial soap.? Wear comfortable, loose fitting clothing.? Children are encouraged to wear pajamas. - Jewelry must be removed prior to entering the operating room.? Rings and piercings that are not removed may be cut off. - The hospital will not accept responsibility for valuables.? - Please leave all valuables, including medications, at home the day of surgery. If you are going home after surgery, a licensed seasonal delivery driver must drive you home.? - NO public transportation without another adult if you receive anesthesia. - We recommend that an adult stay with you for 24 hours following discharge. - We also recommend that you do not drive, make important decision, drink alcoholic beverages, or take any drugs that were not prescribed by your health care provider for at least 24 hours after your discharge time. Follow any additional instructions given to you from your surgeon. Telephone instructions given to patient David____and asked if any additional questions and then verbalized understanding. Patient advised to call surgeon office or pre surgery nurse liaison [phone] if any additional questions.
[2025-02-06] VITALS (9 sets, daily range): BP systolic 112–127; BP diastolic 68–83; PULSE 77–90; RESP 14–18; TEMP 36.3–36.4; O2SAT 96–100; BMI 29.9
--- OUTSIDE RECORDS SUMMARY | 2025-02-06 01:19 | XMS_ITS | Clinical Summary ---
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 Gender Identity Not on file Sexual Orientation Not on file Plan of Treatment Health Maintenance Due Date Last Done Comments Colorectal Cancer Screening Colonoscopy (10 Years) 1968 Annual Physical 11/24/1971 Hepatitis C 1986 DTaP, Tdap and Td Vaccines ( 1 - Tdap) 11/24/1987 Hepatitis B Vaccines (1 of 3 - 19+ 3-dose series) 11/24/1987 Pneumococcal Vaccine: 50+ Ye ars (1 of 1 - PCV) 2018 Zoster Vaccines (1 of 2) 2018 COVID-19 Vaccine ( - 2024-2 6 season) 2024 Influenza Adult (#1) 2024 02/13/2019 Hepatitis A Vaccines Aged Out No long er eligible based on patient's age to complete this topic Meningococcal B Vaccine Aged Out No l onger eligible based on patient's age to complete this topic Meningococcal Vaccine Aged Out No victor hugo radha eligible based on patient's age to complete this topic RSV Immunizations Under 20 Months Aged Out No longer eligible based on patient's age to complete this topic Insurance [facility] Care Teams Demurrage Worker Relationship Specialty Start Date End Date Gallo Romero MD [address] [place] [address] PCP - General FAMILY PRACTICE 02/09/19
--- OUTSIDE RECORDS SUMMARY | 2025-02-06 01:19 | XMS_ITS | Clinical Summary ---
Author Organization [facility] [address] Address [address] [place] [address] Care Team Providers Care Feed Mixer Name Role Phone Gallo Romero MD Primary Care Provider Social History Tobacco Use Types Packs/Day Years Used Date Smoking Tobacco: Never Assessed Personal Safety Answer Date Recorded Getting School Help Needed Not on file 05/07 Sex and Gender Information Value Date Recorded Sex Assigned at Not on file Legal Sex Male 2:41 AM [employer]F [employer]TING [employer] Gender Identity Not on file Sexual Orientation Not on file Plan of Treatment [place] [address] [place] [address] Care Teams Feed Mixer Relationship Specialty Start Date End Date Gallo Romero MD [address] [place] [address] PCP - General Family Medicine 04/15/20
--- NOTE | 2025-02-06 07:23 | WPDHPUPDATE1 ---
History and Physical Update Update Date/Time: 02/06/25 07:23 History and Physical has been reviewed, including an updated exam of the patient. There are NO changes in the patient's condition. Risks, benefits, and alternatives have been discussed and questions answered. Patient agrees to proceed with procedure.
--- NOTE | 2025-02-06 10:48 | ECG_ITS ---
Test Date: 2025-02-06 11:09:47 Measurements Intervals [place] Rate: 87 P: 17 MA: 144 QRS: -3 QRSD: 97 T: 51 QT: 341 QTc: 412 Interpretive Statements SINUS RHYTHM DELAYED PRECORDIAL R/S TRANSITION BASELINE ARTIFACT- I, III, AVL BORDERLINE ECG No previous ECG available for comparison Electronically Signed On 02-06-2025 11:32:37 BUSINESS OFFICE ASSOCIATE by Mahesh Slade D.O.
[2025-02-06] MEDS: LACTATED RINGERS 1,000 ML 30 ML IV CONT (11:00)
[2025-02-06] MEDS: ACETAMINOPHEN 500 MG TABLET 1000 MG PO (11:30)
[2025-02-06] MEDS: KETOROLAC 15 MG/ML VIAL (*BKC) IV PUSH (11:30)
--- NOTE | 2025-02-06 12:24 | WPDANESEPPF ---
Anes - Initial Pre Proc Eval Procedure: Operation Date: 02/06/25 12:30 Proposed Procedures p Right Shoulder Arthroscopic Rotator Cuff Repair, Subacromial Decompression, Proceed as Indicated - Ryan Wiley MD Date/Time: 02/06/25 12:24 Surgeon: Ryan Wiley MD Pre Op Diagnosis: complete right rotator cuff tear Patient Data Age: 54 Gender: M Height: 1.85 m Weight: 103.2 kg Last Vital Signs Temp 36.3 C L 02/06/25 10:35 Pulse 90 02/06/25 10:35 Resp 16 02/06/25 10:35 BP 121/78 02/06/25 10:35 Pulse Ox 99 02/06/25 10:35 O2 Del Method Room Air 02/06/25 10:35 Allergies Allergy/AdvReac Type Severity Reaction Status Date / Time cefuroxime Allergy Mild Unknown Verified 02/06/25 11:52 Penicillins Allergy Unknown Unknown Verified 02/06/25 11:52 Home Medications ?Medication ?Instructions ?Recorded ?Confirmed ?Type aspirin 81 mg tablet,delayed 81 mg PO DAILY 01/23/19 02/06/25 History release esomeprazole magnesium 40 mg 40 mg PO DAILY 01/23/19 02/06/25 History capsule,delayed release (Nexium) fexofenadine 180 mg tablet 180 mg PO DAILY 01/23/19 02/06/25 History albuterol sulfate 90 mcg/actuation 1 - 2 puff inhalation Q4-6H PRN 12/29/23 02/02/25 Rx aerosol inhaler shortness of breath or wheezing #8.5 grams metformin 500 mg tablet See Rx Instructions .Route 02/21/24 02/06/25 Rx .COMPLEX #360 tabs alprazolam 0.5 mg tablet 0.25 mg (1/2 x 0.5 mg) PO ONCE PRN 02/22/24 02/06/25 Rx anxiety #4 tabs amlodipine 10 mg tablet See Rx Instructions .Route 04/03/24 02/06/25 Rx .COMPLEX #90 tabs anastrozole 1 mg tablet 1 mg PO .twice weekly 04/21/24 02/02/25 History testosterone cypionate 200 mg/mL 200 mg IM WEEKLY 04/21/24 02/02/25 History intramuscular oil atorvastatin 80 mg tablet 80 mg PO QHS #90 tabs 07/10/24 02/06/25 Rx dapagliflozin propanediol 10 mg See Rx Instructions .Route 08/28/24 02/06/25 Rx tablet (Farxiga) .COMPLEX #90 tabs fenofibrate micronized 200 mg 200 mg PO DAILY #90 caps 08/28/24 02/06/25 Rx capsule hydrochlorothiazide 25 mg tablet 25 mg PO DAILY #90 tabs 10/09/24 02/06/25 Rx lisinopril 40 mg tablet 40 mg PO DAILY #90 tabs 10/09/24 02/06/25 Rx metoprolol tartrate 50 mg tablet See Rx Instructions .Route 10/09/24 02/06/25 Rx .COMPLEX #180 tabs sildenafil 50 mg tablet (Viagra) 50 mg PO DAILY PRN sexual activity 12/15/24 02/02/25 Rx #10 tabs tirzepatide 10 mg/0.5 mL 10 mg (0.5 mL) subcut WEEKLY #2 mL 01/15/25 02/02/25 Rx subcutaneous pen injector (Mounjaro) multivitamin (One Daily Essential 1 tablet PO DAILY 02/02/25 02/06/25 History tablet) oxycodone-acetaminophen 5 mg-325 1 - 2 tablet PO Q4-6H PRN pain 7 02/06/25 Rx mg tablet days #30 tabs Laboratory Tests 02/06/25 11:08 POC Capillary Glucose 141 H mg/dl (65-105) Patient hx anesthesia problems: none Family hx anesthesia problems: none Results Review: All pre-operative results and documents have been reviewed as part of the pre-operative evaluation. [facility] Past Medical History Medical History (Updated 02/06/25 @ 10:10 by MIA Aparicio) Degenerative tear of glenoid labrum Rupture of right long head biceps tendon Arthritis of right acromioclavicular joint Right rotator cuff tear Right shoulder pain Anxiety Asthma Diverticulosis HTN (hypertension) GERD (gastroesophageal reflux disease) Type 2 diabetes mellitus without complications Dyslipidemia Iron deficiency anemia Family History Family History Mother Patient's mother is in good health Sibling Patient's brother is in good health Social History Social History Social History: Smoking status: Never smoker Second hand tobacco smoke exposure: No Smoking end date: 02/22/93 Alcohol intake: current Drinks per week: 15 Substance use: never Substance use type: does not use Living arrangements: alone Occupation/Education: occupation Additional occupation/education comments: [employer] Gender identity (if verbalized by the patient): Male Sexual Orientation (if Verbalized by the Patient): Straight or Heterosexual Spiritual care concerns: No Anes - Eval Final PreProcedure Day of Procedure 02/06/25 12:24 Patient weight: obese Heart: regular rate and rhythm Lungs: clear to auscultation Airway: Mallampati scale class II Neurological: alert and oriented Last oral intake: >/= 8 hours ASA classification: III Emergent: no Anesthetic plan: proceed Anesthesia type and monitoring: general ETT and standard monitoring Results Review: All pre-operative results and documents have been reviewed as part of the pre-operative evaluation. Informed Consent: The patient's anesthetic plan and its attendant risks and benefits were discussed with the patient/family/POA. Questions were solicited and answers provided to the satisfaction of the patient/family/POA.
--- NOTE | 2025-02-06 12:25 | WPDANESPNB ---
Anes - Peripheral Nerve Block Date/Time: 02/06/25 12:25 I have discussed with the patient/family/POA the placement of a peripheral nerve block for post-operative pain management, including associated risks, benefits, complications, and side effects. Alternative methods of post-operative analgesia were detailed. Questions were solicited and answers provided to the satisfaction of the patient/family/POA. Time-Out: A pre-procedural Time-Out was completed immediately before starting the procedure and confirmed: Patient Identification, Site, Procedure, Patient Position and the Availability of Requisite Equipment. Clinical Indications: Acute post-operative pain management requested by the operative surgeon. Nerve Block Insertion Note Anes-nerve block: interscalene right Patient position: supine Skin prep: chlorhexidine Needle: 22 gauge, stimulating, insulated echogenic needle. Needle length: 50 mm Technique: ultrasound Injectate: bupivacaine 0.5% with epi 5 mcg/ml (20cc- no epi) Observations: tolerated well Complications: none Procedure start time:: 1300 Procedure end time:: 1303
[2025-02-06] MEDS: ceFAZolin 2 GM in SODIUM CHLORIDE 0.9% IV 50 ML 100 ML IVPB (13:07)
--- NOTE | 2025-02-06 14:37 | W.PM.PROC2 ---
Procedure Note - Detailed Date of Procedure 02/06/25 Pre-op Diagnosis 1. Complete right shoulder rotator cuff tear 2. Biceps tendon rupture 3. Subacromial impingement 4. Superior labral tear Post-op Diagnosis Same Procedure Performed Right shoulder 1. Arthroscopic rotator cuff repair 2. Arthroscopic subacromial decompression 5. Arthroscopic labral debridement Surgeon Ryan Wiley MD Aquatics Specialist Alicia Chang PA-C Anesthesia General and Regional ( interscalene block) Findings Completed tear medium sized, without retraction. Moderate tendon attenuation. Ruptured biceps stump and superior labral tear debrided. Subacromial decompression performed with the arthroscopic bur. Significant anterolateral spur noted. Description of Procedure Preoperative antibiotics were given. An interscalene block was administered in the preoperative area. The patient was bought brought to the operating room. A general anesthetic was administered. The patient was carefully positioned in the beach chair position. The head and neck were carefully positioned. The non operative extremity was also carefully positioned. The shoulder was prepped and draped in the usual sterile fashion. Examination was performed. Standard posterior and anterior arthroscopic portals were established. Inflow achieved with the arthroscopic pump using saline and epinephrine. The glenohumeral joint was carefully inspected. The articular cartilage was normal. There was a full-thickness supraspinatus tear with some attenuation of tendon. A large stump of the long head of the biceps was identified and debrided along with the superior labrum that was torn. The subscapularis was intact with only minimal frayed capsule. Attention was turned to the subacromial space. A complete bursectomy was performed. Subacromial decompression was performed with the arthroscopic bur removing the anterolateral subacromial bone spur. The tear configuration was carefully assessed. At this point, 2 tunnels were created at the rotator cuff. Three sutures were passed through each tunnel. All sutures were then passed through the cuff tissue. The sutures were tied arthroscopically. The arthroscopic instruments were removed. The wounds were closed with 3-0 Monocryl subcuticular suture and steri strips. There were no complications. A sling was applied and the patient brought to the recovery room. Physician field administrative assistant, Alicia Chang PA-C, required for surgery; including patient positioning, draping, arthroscopic camera operation, maintaining instrument position, suture retrieval, wound closure, and dressing and sling placement. Estimated Blood Loss 10 Pathology None sent Complications No immediate complications Condition Stable Disposition PACU [facility] Billing Surgery - Charge Forward: Surgery Billing
--- NOTE | 2025-02-06 15:59 | SUR.PHASEII ---
Dr Ontiveros notified of ptosis of right eye post nerve block. MD in room to assess patient. No new orders at this time, okay to proceed with d/c.
== END 2025-02-06 17:15 | disposition home or self-care (01) ==
PROVIDERS: PCP Family Medicine; Visit Provider Orthopaedic Surgery
PROC: (CPT 29805; principal; 2025-02-06 12:30)
DX: M75.121 Complete rotator cuff tear or rupture of right shoulder, not specified as traumatic (principal); S46.111A Strain of muscle, fascia and tendon of long head of biceps, right arm, initial encounter; M24.119 Other articular cartilage disorders, unspecified shoulder; M19.011 Primary osteoarthritis, right shoulder; G89.29 Other chronic pain; E78.5 Hyperlipidemia, unspecified; I10 Essential (primary) hypertension; K21.9 Gastro-esophageal reflux disease without esophagitis; J45.909 Unspecified asthma, uncomplicated; E11.9 Type 2 diabetes mellitus without complications; D50.9 Iron deficiency anemia, unspecified; F41.9 Anxiety disorder, unspecified; E66.9 Obesity, unspecified; Z68.30 Body mass index [BMI] 30.0-30.9, adult; Z79.82 Long term (current) use of aspirin; Z79.51 Long term (current) use of inhaled steroids; Z79.84 Long term (current) use of oral hypoglycemic drugs; Z79.85 Long-term (current) use of injectable non-insulin antidiabetic drugs; Z79.891 Long term (current) use of opiate analgesic; Z87.19 Personal history of other diseases of the digestive system; G89.18 Other acute postprocedural pain
CPT/HCPCS: 64415; 29827; 29826; 82948; 93005; J0690; A9270; J0166; J1100; J1885; J2250; J2405; J2704; J3010; J7120